=== PATIENT | female | born 1945 | race Caucasian/White ===

== ENCOUNTER 2016-06-22 10:14 | Inpatient (IN) | payer MEDICARE, BC ==
[2016-06-11 18:35] LABS: BASOPHILS ABSOLUTE 0.04 10/3/uL (0.0-0.16); EOSINOPHILS 1.9 %; EOSINOPHILS ABSOLUTE 0.08 10/3/uL (0.0-0.53); HEMOGLOBIN 12.3 g/dL (12.0-16.0); IMMATURE GRANULOCYTES 0.2 %; IMMATURE GRANULOCYTES ABSOLUTE 0.01 10/3/uL (0.0-0.11); LYMPHOCYTES 40.4 %; MEAN CORPUS HGB CONC 32.5 g/dL (32.0-36.0); MEAN CORPUSCULAR HEMOGLOB 31.6 pg (26.0-34.0); MEAN CORPUSCULAR VOLUME 97.2 fL (80-100); MEAN PLATELET VOLUME 10.6 fL (9.2-13.0); MONOCYTES 8.6 %; MONOCYTES ABSOLUTE 0.36 10/3/uL (0.21-1.20); NEUTROPHILS 47.9 %; NEUTROPHILS ABSOLUTE 2.02 10/3/uL (2.02-8.40); RED CELL COUNT 3.89 10/6/uL (4.0-5.6); WHITE BLOOD CELLS 4.2 10/3/uL (4.5-10.5)
[2016-06-11 18:37] LABS: HEMATOCRIT 37.8 % (36.0-48.0); MANUAL DIFF NO %; PLATELET COUNT 241 10/3/uL (150-400)
[2016-06-11 19:15] LABS: BUN (BLOOD UREA NITROGEN) 12 MG/DL (6-23); CA 125 II 8.1 U/ML (< 35.0); CALCIUM, SERUM 8.8 MG/DL (8.5-10.4); CHLORIDE, SERUM 103 MMOL/L (96-112); CO2 (CARBON DIOXIDE) 28 MMOL/L (24-34); CREATININE 0.73 MG/DL (0.55-1.02); GFR AFRICAN AMERICAN 95 ML/MIN (>=60); GFR NON AFRICAN AMERICAN 82 ML/MIN (>=60); GLUCOSE, SERUM 107 MG/DL (60-99); POTASSIUM, SERUM 4.6 MMOL/L (3.5-5.3); SODIUM, SERUM 139 MMOL/L (135-148)
--- NOTE | ~2016-06-22 | OP ---
Record Of Operation [facility] [address] [place]. [address] NAME: TERRI COHEN : 43 STATUS : ADM IN PAT#: [id number] AGE: 71 ADM/REG DATE : 06/22/16 MR#: [id number] REPORT SERV DATE: 06/22/16 DICTATED BY: ALEC OVALLES DATE: 06/22/16 REPORT STATUS : Draft TRANSCRIBED BY: MODL DATE: 06/22/16 DATE OF PROCEDURE: 06/22/2016 PRIMARY SURGEON: Alec Ovalles M.D. TECHNICAL DATA ANALYST: Austin Schroeder. PREOPERATIVE DIAGNOSIS: FIGO grade 2 endometrial adenocarcinoma. POSTOPERATIVE DIAGNOSIS: FIGO grade 2 endometrial adenocarcinoma with pathology pending. PROCEDURE PERFORMED: CPT code 86271. Da Cassie (laparoscopic robotic) radical hysterectomy, bilateral salpingo-oophorectomy, pelvic periaortic lymph node dissection for endometrial cancer staging. ESTIMATED BLOOD LOSS: 5 mL. MATERIAL FORWARDED TO LABORATORY FOR EXAMINATION: Correct as listed on the pathology report. INDICATION AND FINDINGS: Terri Cohen is a 71-year-old, 4, para 2, seen in consultation regarding a FIGO grade 2 moderately differentiated endometrial adenocarcinoma noted on her 05/20/2016 endometrial biopsy. Apart from her bleeding, Adriana had no complaints suspicious for advanced endometrial cancer. Apart from early-stage breast cancer, she has no traditional risk factors for endometrial cancer. CA-125 was negative at 8.1. Chest x-ray and mammogram were negative. FINDINGS AT THE TIME OF SURGERY: She has a 6-week uterus. Upon extirpation, this is opened. There was a small mid fundal carcinoma measuring approximately 1 cm in diameter. She has FireFly positive inferior iliac (bilateral) periaortic and precaval sentinel lymph nodes. PROCEDURE IN DETAIL: The patient was taken to the operating room, where under general endotracheal anesthesia, she was placed in the modified lithotomy position using Charli stirrups. The abdomen and vagina were prepped and the patient was draped. Indocyanine green was injected at the 3 and 6 o'clock position of the uterine cervix. A CARY uterine manipulator was placed. A Veress needle was inserted in the left upper quadrant and a pneumoperitoneum was established. A non-bladed 8 mm cannula for the da Cassie system was inserted approximately 10 cm above the umbilicus. The da Cassie scope was inserted and under direct visualization, three additional cannula for the da Cassie system were placed, two in the lower quadrants and one in the right midaxillary line. Accessory 10/12 trocar was placed in the left upper quadrant. The patient was placed in Trendelenburg and the robot was assembled. A thorough intraabdominal pelvic exploration was undertaken. Sharp electrocautery enterolysis was undertaken to take down the physiologic adhesions. The remaining left fallopian tube was occluded with bipolar cautery (the right fallopian tube is surgically absent from a previous ectopic ). Pelvic washings were obtained. The retroperitoneal spaces were then entered over the psoas muscles with extension to the round ligaments which were isolated, coagulated with bipolar cautery, and transected with Record Of Operation [facility] [address] [place]. [address] NAME: TERRI COHEN : 43 STATUS : ADM IN PAT#: [id number] AGE: 71 ADM/REG DATE : 06/22/16 MR#: [id number] REPORT SERV DATE: 06/22/16 DICTATED BY: ALEC OVALLES DATE: 06/22/16 REPORT STATUS : Draft TRANSCRIBED BY: MODL DATE: 06/22/16 monopolar scissors. The anterior leaves of the broad ligament were dissected in the vesicouterine fold. The bladder was dissected off the lower uterine segment and vesicovaginal septum with electrocautery without difficulty. The paravesical and pararectal spaces were developed. Using FireFly technology, bilateral inferior iliac sentinel lymph nodes were identified. They were taken separately. Periaortic FireFly positive sentinel lymph nodes were identified. They were taken separately. The precaval lymph node beds were exposed and then using FireFly technology, a large portion of FireFly positive sentinel lymph nodes were removed. The ovarian vessels were skeletonized, coagulated with bipolar cautery, and transected with monopolar scissors. The posterior leaves of the broad ligament were dissected to the uterosacral ligaments. The uterine vessels were skeletonized. They were coagulated with bipolar cautery midway through the cardinal ligament and transected with monopolar scissors. The cardinal and uterosacral ligament were dissected with monopolar cautery to a level well below the cervix. The vagina was entered over the RAFAEL nonconductive ring and utilizing electrocautery in a circumferential fashion, hysterectomy was completed. The specimen was removed through the vagina where it was inspected and the findings were as noted. The pelvis was copiously irrigated with a liter of sterile water in the usual fashion. The retroperitoneal spaces were then re-exposed bilaterally. All remaining lymph node-bearing tissue medial to the genitofemoral nerves, lateral to the obliterated umbilical artery, superior to the circumflex iliac vein, inferior to the bifurcation of the aorta, and anterior to the obturator nerves were dissected with sharp electrocautery dissection and submitted as left and right pelvic lymph nodes. The vaginal cuff was closed with a running stitch of #3-0 V-Loc. Surgicel SNoW followed by EnSeal was placed on the lymph node dissection beds. The pneumoperitoneum was reduced. All instruments were removed. All counts were correct. The 10/12 fascial incision was closed with [id number] stitch of 0 Vicryl. The skin incisions were closed with subcuticular stitches of 4-0 Monocryl followed by Dermabond. The patient was awakened and taken to the recovery room in stable condition after having tolerated the procedure well. ELIZABETH/CARMEL Alec Ovalles M.D. / [id number] CC: Alec Ovalles M.D.
[~2016-06-22 10:14] MED LIST: LEVOTHYROXIN50 MCG PO; LOTE20 PO
[2016-06-23] MEDS ORDERED: PCET PO (08:11)
[2016-06-23] MEDS ORDERED: DSS PO (08:12)
[2016-06-23] MEDS ORDERED: ASA5GR PO (08:13)
== END 2016-06-23 11:28 | disposition home or self-care (01) | DRG 741 ==
LOC: SDC/OF 10:14 → PACU 14:16 → 4EA 17:43
PROVIDERS: Obstetrics & Gynecology Gynecologic Oncology
PROC: 0UTC4ZZ Resection of Cervix, Percutaneous Endoscopic Approach (ICD-10-PCS; 2016-06-22)
PROC: 0UT74ZZ Resection of Bilateral Fallopian Tubes, Percutaneous Endoscopic Approach (ICD-10-PCS; 2016-06-22)
PROC: 0UT24ZZ Resection of Bilateral Ovaries, Percutaneous Endoscopic Approach (ICD-10-PCS; 2016-06-22)
PROC: 07BC4ZX Excision of Pelvis Lymphatic, Percutaneous Endoscopic Approach, Diagnostic (ICD-10-PCS; 2016-06-22)
PROC: 8E0W4CZ Robotic Assisted Procedure of Trunk Region, Percutaneous Endoscopic Approach (ICD-10-PCS; 2016-06-22)
PROC: 0UT94ZZ Resection of Uterus, Percutaneous Endoscopic Approach (ICD-10-PCS; principal; 2016-06-22 11:00)
DX: C54.1 Malignant neoplasm of endometrium (principal); I10 Essential (primary) hypertension; E03.9 Hypothyroidism, unspecified
CPT/HCPCS: 36415; 71020-PO; 80048; 85025; 86304; 86850; 86900; 86901; 88112; 88305; 88307; 88309; 88341; 88342; 93005; A9270-GY; J0694; J1170; J1885; J2250; J2405; J2710; J3010